=== PATIENT | male | born 1965 | race Two or more races ===

== ENCOUNTER 2023-10-02 15:20 | Inpatient (IN) | payer MEDICAID, OTHER ==
[~2023-10-02] VITALS: Ht 172.7 cm; Wt 68.1 kg
[2023-10-02] MEDS ORDERED: SODIUM CHLORIDE 0.9% 1,000 ML IV ONE ×2 (15:30→19:30)
[2023-10-02] MEDS ORDERED: ALBUTEROL SULF 2.5 MG/0.5ML(0.5%) NEB SOLN NEB ONE (15:30)
[2023-10-02] MEDS ORDERED: IPRATROPIUM BROM 0.5 MG/2.5ML INH SOL NEB ONE (15:30)
[2023-10-02] MEDS ORDERED: methylPREDNISolone SOD SUCC 125 MG/2 ML VL IV ONE (15:30)
[2023-10-02] MEDS ORDERED: NALOXONE HCL 1MG/ML 2ML SYRINGE IV ONE ×2 (15:45→20:45)
[2023-10-02 16:54] LABS: Basophils # (auto) 0 10 ^3/uL (0-0.2); Basophils % (auto) 0.8 % (0.0-2.0); Eosinophils # (auto) 0.2 10 ^3/uL (0-0.8); Eosinophils % (auto) 3.7 % (0.0-7.0); Hematocrit 40.7 % (41.0-53.0); Lymphocytes # (auto) 1.3 10 ^3/uL (0.4-5.4); Lymphocytes % (auto) 22.7 % (10.0-50.0); Mean Corpuscular Hemoglobin 27.3 pg (28.0-32.0); Mean Corpuscular Volume 85.5 fL (80.0-100.0); Monocytes # (auto) 0.8 10 ^3/uL (0-1.3); Monocytes % (auto) 12.8 % (0.0-12.0); Neutrophils # (auto) 3.6 10 ^3/uL (1.6-8.6); Red Blood Cells 4.76 10^6/uL (4.5-5.90); Red Cell Distribution Width 15.1 % (11.8-14.3); White Blood Cell 5.9 10^3/uL (4.4-10.8)
[2023-10-02 17:07] LABS: Alanine Aminotransferase 37 U/L (7-40); Albumin 3.7 g/dL (3.2-4.8); Alkaline Phosphatase 109 U/L (46-116); Anion Gap 11 (5-15); Aspartate Aminotransferase 50 U/L (13-40); Bilirubin, Total 0.3 mg/dL (0.2-1.0); Blood Urea Nitrogen 18 mg/dL (9-23); Calcium 8.5 mg/dL (8.7-10.4); Carbon Dioxide 25 mmol/L (20-30); Chloride 107 mmol/L (98-107); Glucose 109 mg/dL (74-106); Potassium 3.3 mmol/L (3.5-5.1); Sodium 143 mmol/L (136-145); Total Protein 6.1 g/dL (5.7-8.2)
[2023-10-02 17:24] LABS: Acetaminophen < 2.0 UG/ML (10.0-20.0)
[2023-10-02 17:28] LABS: Creatine Kinase IFCC 222 U/L (46-171)
[2023-10-02 17:30] LABS: Salicylate < 3.0 mg/dL (2.8-20.0)
[2023-10-02 17:34] LABS: Lactic Acid w/Reflex 5.3 mmol/L (0.4-2.0)
[2023-10-02 17:49] LABS: Urine Bacteria NONE SEEN /hpf (None Seen); Urine Blood Negative /uL (Negative); Urine Clarity Clear (Clear); Urine Color Colorless (Yellow); Urine Hyaline Cast FEW /lpf (0 - 2); Urine Protein, UAD Negative (Negative); Urine Specific Gravity 1.009 (1.001-1.035); Urine Urobilinogen Normal (Negative); Urine WBC 1 /hpf (0 - 3); Urine pH 6.5 (5.0-8.0)
[2023-10-02 17:55] LABS: Amphetamine Screen, Urine Pos (NEGATIVE); Barbiturate Scree,Urine Neg (NEGATIVE); Benzodiazephine Screen, Urine Neg (NEGATIVE); Cannabinoid Screen, Urine Neg (NEGATIVE); Cocaine Screen, Urine Neg (NEGATIVE); Opiate Scree,Urine Neg (NEGATIVE); Phencyclidine Screen, Urine Neg (NEGATIVE)
[2023-10-02] MEDS ORDERED: PIPERACILLIN-TAZOB 3.375GM 100 ML IV ONE (19:30)
[2023-10-02 19:50] VITALS: PULSE 82; RESP 14; O2SAT 96
[2023-10-02 20:00] VITALS: TEMP 98.7
[2023-10-02 20:05] VITALS: PULSE 74; RESP 16; O2SAT 98
[2023-10-02] MEDS ORDERED: ASPirin 325 MG TAB PO ONE (20:45)
[2023-10-02] MEDS ORDERED: DOCUSATE SOD 100 MG CAP PO PRN (21:15)
[2023-10-02] MEDS ORDERED: IBUPROFEN 600 MG TAB PO PRN (21:15)
[2023-10-02] MEDS ORDERED: HYDROcodone-ACET 5/325MG TAB PO PRN (21:15)
[2023-10-02] MEDS ORDERED: IPRATROPIUM BROM 0.5 MG/2.5ML INH SOL NEB PRN (21:15)
[2023-10-02] MEDS ORDERED: ALBUTEROL MEDNEB 2.5 mg/3ml NEB NEB PRN (21:15)
[2023-10-02] MEDS ORDERED: ONDANSETRON HCL 4 MG/2 ML VIAL IV PRN (21:15)
[2023-10-02] MEDS: SODIUM CHLOR 0.9% PF (SALINE LOCK) 10ML VIAL/SYR IV SCH (21:29)
[2023-10-02] MEDS ORDERED: POTASSIUM CHL 20 Meq TABLET PO ONE (23:00)
[2023-10-02] MEDS ORDERED: NITROGLYCERIN 0.4 MG SL TAB SL PRN (23:30)
[2023-10-02] MEDS ORDERED: MORPHINE SULFATE INJ 2 MG/ml SYRG IV PRN (23:30)
[2023-10-03 00:48] VITALS: O2SAT 100
[2023-10-03 03:04] VITALS: BP 131/92; PULSE 72; RESP 20; O2SAT 100
[2023-10-03] MEDS ORDERED: PIPERACILLIN-TAZOB 3.375GM 100 ML IV SCH (05:00)
[2023-10-03] MEDS: SODIUM CHLOR 0.9% PF (SALINE LOCK) 10ML VIAL/SYR IV SCH (05:30)
[2023-10-03 06:00] VITALS: BP 141/90; PULSE 68; RESP 12
[2023-10-03 07:11] VITALS: O2SAT 96
[2023-10-03 07:51] LABS: Basophils # (auto) 0 10 ^3/uL (0-0.2); Basophils % (auto) 0.1 % (0.0-2.0); Eosinophils # (auto) 0 10 ^3/uL (0-0.8); Hematocrit 49.1 % (41.0-53.0); Hemoglobin 15.3 g/dL (13.5-17.5); Lymphocytes # (auto) 0.8 10 ^3/uL (0.4-5.4); Mean Corpuscular Hemoglobin 27.5 pg (28.0-32.0); Mean Corpuscular Hgb Conc. 31.1 g/dL (32.0-36.0); Mean Corpuscular Volume 88.4 fL (80.0-100.0); Monocytes # (auto) 0.7 10 ^3/uL (0-1.3); Monocytes % (auto) 6.4 % (0.0-12.0); Neutrophils # (auto) 8.9 10 ^3/uL (1.6-8.6); Neutrophils % (auto) 85.5 % (37.0-80.0); Red Blood Cells 5.56 10^6/uL (4.5-5.90); Red Cell Distribution Width 15.6 % (11.8-14.3); White Blood Cell 10.5 10^3/uL (4.4-10.8)
[2023-10-03 09:32] LABS: Platelet Estimate Adequate
[2023-10-03 09:44] LABS: Alanine Aminotransferase 31 U/L (7-40); Alkaline Phosphatase 103 U/L (46-116); Anion Gap 4 (5-15); BUN/Creatinine Ratio 12.5 (10.0-20.0); Blood Urea Nitrogen 10 mg/dL (9-23); Carbon Dioxide 28 mmol/L (20-30); Chloride 105 mmol/L (98-107); Glucose 125 mg/dL (74-106); Potassium 4.2 mmol/L (3.5-5.1); Sodium 137 mmol/L (136-145)
[2023-10-03 09:45] LABS: Aspartate Aminotransferase 34 U/L (13-40); Bilirubin, Total 0.6 mg/dL (0.2-1.0)
[2023-10-03] MEDS ORDERED: ASPirin 81 mg TAB PO SCH (10:00)
[2023-10-03] MEDS ORDERED: SODIUM CHLORIDE 0.9% 1,000 ML IV SCH (11:15)
== END 2023-10-03 12:06 | disposition left against medical advice (07) | DRG 52 ==
LOC: EDBD 15:20 → ER 15:20 → TELE 23:25
PROVIDERS: ADMIT Nurse Practitioner Family; ATTEND Family Medicine
DX: G92.8 Other toxic encephalopathy (principal); J96.90 Respiratory failure, unspecified, unspecified whether with hypoxia or hypercapnia; I21.A1 Myocardial infarction type 2; E87.21 Acute metabolic acidosis; F10.10 Alcohol abuse, uncomplicated; Z53.29 Procedure and treatment not carried out because of patient's decision for other reasons; E86.0 Dehydration; E87.6 Hypokalemia; F19.10 Other psychoactive substance abuse, uncomplicated; M62.82 Rhabdomyolysis; Z87.891 Personal history of nicotine dependence
CPT/HCPCS: 36415; 70450; 71045; 80053; 80307; 80320; 80329; 81001; 82550; 83605; 83735; 83880; 84484; 85025; 87040; 87077; 87186; 93005; 94640; G0378; J2543

== ENCOUNTER 2023-10-07 11:45 | Inpatient (IN) | payer MEDICAID ==
[~2023-10-07] VITALS: Ht 175.3 cm; Wt 55.0 kg
[2023-10-07 12:21] LABS: Basophils # (auto) 0.1 10 ^3/uL (0-0.2); Basophils % (auto) 0.7 % (0.0-2.0); Eosinophils # (auto) 0.1 10 ^3/uL (0-0.8); Eosinophils % (auto) 0.8 % (0.0-7.0); Hematocrit 41.2 % (41.0-53.0); Lymphocytes # (auto) 0.8 10 ^3/uL (0.4-5.4); Lymphocytes % (auto) 6.9 % (10.0-50.0); Mean Corpuscular Hemoglobin 27.2 pg (28.0-32.0); Mean Corpuscular Hgb Conc. 31.5 g/dL (32.0-36.0); Mean Corpuscular Volume 86.5 fL (80.0-100.0); Monocytes # (auto) 0.7 10 ^3/uL (0-1.3); Monocytes % (auto) 5.9 % (0.0-12.0); Neutrophils # (auto) 10.1 10 ^3/uL (1.6-8.6); Neutrophils % (auto) 85.7 % (37.0-80.0); Red Blood Cells 4.76 10^6/uL (4.5-5.90); Red Cell Distribution Width 14.7 % (11.8-14.3); White Blood Cell 11.8 10^3/uL (4.4-10.8)
[2023-10-07 12:38] LABS: Partial Thromboplastin Time 20.6 SEC (24.5-34.5); Prothrombin Time 10.5 sec (9.3-11.8)
[2023-10-07 12:54] LABS: Alanine Aminotransferase 30 U/L (7-40); Alkaline Phosphatase 110 U/L (46-116); Anion Gap 6 (5-15); Aspartate Aminotransferase 30 U/L (13-40); BUN/Creatinine Ratio 14.3 (10.0-20.0); Bilirubin, Total 0.5 mg/dL (0.2-1.0); Blood Urea Nitrogen 16 mg/dL (9-23); Carbon Dioxide 31 mmol/L (20-30); Chloride 102 mmol/L (98-107); Glucose 153 mg/dL (74-106); Potassium 4.1 mmol/L (3.5-5.1); Sodium 139 mmol/L (136-145); Total Protein 6.6 g/dL (5.7-8.2)
[2023-10-07 15:10] LABS: Magnesium 2.1 mg/dL (1.6-2.6)
[2023-10-07] MEDS ORDERED: ENOXAPARIN SOD 80 MG/0.8ML SYRINGE SC ONE (15:15)
[2023-10-07] MEDS ORDERED: IOHEXOL 350 MG/ML 100ML IJ ONE (16:06)
[2023-10-07 16:12] LABS: Urine Bacteria FEW /hpf (None Seen); Urine Blood Negative /uL (Negative); Urine Clarity HAZY (Clear); Urine Color Yellow (Yellow); Urine Hyaline Cast MOD /lpf (0 - 2); Urine Mucus FEW (None Seen); Urine Protein, UAD 1+ (Negative); Urine Specific Gravity 1.018 (1.001-1.035); Urine Sperm PRESENT /hpf (None Seen); Urine Urobilinogen Normal (Negative); Urine WBC 9 /hpf (0 - 3); Urine pH 6.5 (5.0-8.0)
[2023-10-07] MEDS ORDERED: ASPirin 81 mg TAB PO ONE (16:30)
[2023-10-07] MEDS ORDERED: NITROGLYCERIN 0.4 MG SL TAB SL ONE (16:30)
[2023-10-07 18:05] LABS: Triglycerides 50 mg/dL (< 150)
[2023-10-07 18:06] LABS: LDL Cholesterol 74 mg/dL (< 100)
[2023-10-07 18:07] LABS: Cholesterol 147 mg/dL (< 200); HDL Cholesterol 63 mg/dL (40-59)
[2023-10-07] MEDS: LISINOPRIL 10 MG TAB PO SCH (23:27)
[2023-10-08 06:51] LABS: Basophils # (auto) 0.1 10 ^3/uL (0-0.2); Basophils % (auto) 0.6 % (0.0-2.0); Eosinophils # (auto) 0.2 10 ^3/uL (0-0.8); Eosinophils % (auto) 2.2 % (0.0-7.0); Hematocrit 36.8 % (41.0-53.0); Hemoglobin 11.8 g/dL (13.5-17.5); Lymphocytes # (auto) 1.4 10 ^3/uL (0.4-5.4); Lymphocytes % (auto) 13.8 % (10.0-50.0); Mean Corpuscular Volume 84.3 fL (80.0-100.0); Monocytes # (auto) 1.1 10 ^3/uL (0-1.3); Monocytes % (auto) 10.8 % (0.0-12.0); Neutrophils # (auto) 7.1 10 ^3/uL (1.6-8.6); Neutrophils % (auto) 72.6 % (37.0-80.0); Red Blood Cells 4.36 10^6/uL (4.5-5.90); Red Cell Distribution Width 14.6 % (11.8-14.3); White Blood Cell 9.8 10^3/uL (4.4-10.8)
[2023-10-08 06:53] LABS: Alanine Aminotransferase 22 U/L (7-40); Albumin 3.8 g/dL (3.2-4.8); Alkaline Phosphatase 91 U/L (46-116); Anion Gap 5 (5-15); Aspartate Aminotransferase 21 U/L (13-40); BUN/Creatinine Ratio 15.2 (10.0-20.0); Bilirubin, Total 0.6 mg/dL (0.2-1.0); Blood Urea Nitrogen 17 mg/dL (9-23); Calcium 8.7 mg/dL (8.7-10.4); Carbon Dioxide 30 mmol/L (20-30); Chloride 102 mmol/L (98-107); Glucose 96 mg/dL (74-106); Potassium 3.9 mmol/L (3.5-5.1); Sodium 137 mmol/L (136-145); Total Protein 6.4 g/dL (5.7-8.2)
[2023-10-08 09:14] VITALS: PULSE 85; RESP 19; O2SAT 100
[2023-10-08 09:27] LABS: Amphetamine Screen, Urine Pos (NEGATIVE); Barbiturate Scree,Urine Neg (NEGATIVE); Benzodiazephine Screen, Urine Neg (NEGATIVE); Cannabinoid Screen, Urine Pos (NEGATIVE); Cocaine Screen, Urine Neg (NEGATIVE); Opiate Scree,Urine Neg (NEGATIVE); Phencyclidine Screen, Urine Neg (NEGATIVE)
[2023-10-08] MEDS: ONDANSETRON HCL 4 MG/2 ML VIAL IV PRN (09:33)
[2023-10-08] MEDS: MORPHINE SULFATE INJ 2 MG/ml SYRG IV PRN ×5 (09:34→20:49)
[2023-10-08] MEDS ORDERED: SODIUM CHLORIDE 0.9% 1,000 ML IV ONE (09:45)
[2023-10-08] MEDS ORDERED: ENOXAPARIN SOD 40 MG/0.4 ML SYRINGE SC SCH (10:00)
[2023-10-08] MEDS ORDERED: OMNIPAQUE 12mg/ml 500ml ORAL SOLUTION PO ONE (10:08)
[2023-10-08] MEDS: LISINOPRIL 10 MG TAB PO SCH (10:18)
[2023-10-08] MEDS ORDERED: IOHEXOL 300 MG/ML 100ML BOTTLE IJ ONE (11:27)
[2023-10-08 15:54] VITALS: BP 173/115; PULSE 88; RESP 22; TEMP 98.1; O2SAT 98
[2023-10-08 16:48] VITALS: BP 146/82; PULSE 95; RESP 21; TEMP 98.2; O2SAT 99
[2023-10-08] MEDS ORDERED: GABA-1250 PO (17:17)
[2023-10-08] MEDS ORDERED: hydrALAZINE HCL 20 MG/ML VL IV PRN (17:30)
[2023-10-08 20:00] VITALS: PULSE 104
[2023-10-08 22:00] VITALS: BP 110/66; PULSE 97; RESP 18; TEMP 97.7; O2SAT 85
[2023-10-09] VITALS (7 sets, daily range): BP systolic 101–119; BP diastolic 56–79; PULSE 91–99; RESP 20–22; TEMP 98.2–99.5; O2SAT 97–100
[2023-10-09 07:00] LABS: Basophils # (auto) 0 10 ^3/uL (0-0.2); Basophils % (auto) 0.5 % (0.0-2.0); Eosinophils # (auto) 0 10 ^3/uL (0-0.8); Eosinophils % (auto) 0.5 % (0.0-7.0); Hematocrit 32.1 % (41.0-53.0); Hemoglobin 10.4 g/dL (13.5-17.5); Lymphocytes # (auto) 0.9 10 ^3/uL (0.4-5.4); Lymphocytes % (auto) 10.1 % (10.0-50.0); Mean Corpuscular Hemoglobin 27.3 pg (28.0-32.0); Mean Corpuscular Hgb Conc. 32.3 g/dL (32.0-36.0); Mean Corpuscular Volume 84.4 fL (80.0-100.0); Monocytes # (auto) 1.1 10 ^3/uL (0-1.3); Monocytes % (auto) 11.8 % (0.0-12.0); Neutrophils # (auto) 7.1 10 ^3/uL (1.6-8.6); Neutrophils % (auto) 77.1 % (37.0-80.0); Red Cell Distribution Width 14.6 % (11.8-14.3); White Blood Cell 9.2 10^3/uL (4.4-10.8)
[2023-10-09 07:07] LABS: Anion Gap 6 (5-15); Carbon Dioxide 28 mmol/L (20-30); Chloride 101 mmol/L (98-107); Potassium 4.2 mmol/L (3.5-5.1); Sodium 135 mmol/L (136-145)
[2023-10-09 07:09] LABS: Calcium 8.9 mg/dL (8.7-10.4)
[2023-10-09 07:14] LABS: BUN/Creatinine Ratio 16.9 (10.0-20.0); Blood Urea Nitrogen 13 mg/dL (9-23); Glucose 90 mg/dL (74-106)
[2023-10-09] MEDS: MORPHINE SULFATE INJ 2 MG/ml SYRG IV PRN ×3 (08:07→16:41)
[2023-10-09] MEDS: LISINOPRIL 10 MG TAB PO SCH (08:07)
[2023-10-09] MEDS ORDERED: LORazepam 2MG/ML-1ML VIAL IV PRN (12:45)
[2023-10-10] VITALS (7 sets, daily range): BP systolic 108–118; BP diastolic 64–72; PULSE 82–103; RESP 16–22; TEMP 98–98.4; O2SAT 93–97
[2023-10-10] MEDS: MORPHINE SULFATE INJ 2 MG/ml SYRG IV PRN ×4 (02:45→17:43)
[2023-10-10 05:36] LABS: Basophils # (auto) 0.1 10 ^3/uL (0-0.2); Eosinophils # (auto) 0.2 10 ^3/uL (0-0.8); Eosinophils % (auto) 2.1 % (0.0-7.0); Hematocrit 28.6 % (41.0-53.0); Hemoglobin 9.5 g/dL (13.5-17.5); Lymphocytes # (auto) 0.9 10 ^3/uL (0.4-5.4); Lymphocytes % (auto) 11.5 % (10.0-50.0); Mean Corpuscular Hemoglobin 27.9 pg (28.0-32.0); Mean Corpuscular Hgb Conc. 33.2 g/dL (32.0-36.0); Mean Corpuscular Volume 83.9 fL (80.0-100.0); Monocytes # (auto) 0.9 10 ^3/uL (0-1.3); Monocytes % (auto) 11.6 % (0.0-12.0); Neutrophils # (auto) 5.7 10 ^3/uL (1.6-8.6); Neutrophils % (auto) 73.8 % (37.0-80.0); Nucleated Red Blood Cells % 0.1 %; Red Blood Cells 3.41 10^6/uL (4.5-5.90); Red Cell Distribution Width 14.3 % (11.8-14.3); White Blood Cell 7.7 10^3/uL (4.4-10.8)
[2023-10-10 05:46] LABS: Anion Gap 8 (5-15); Carbon Dioxide 27 mmol/L (20-30); Chloride 102 mmol/L (98-107); Potassium 4.3 mmol/L (3.5-5.1); Sodium 137 mmol/L (136-145)
[2023-10-10 05:47] LABS: Calcium 8.8 mg/dL (8.7-10.4)
[2023-10-10 05:52] LABS: Blood Urea Nitrogen 20 mg/dL (9-23); Glucose 84 mg/dL (74-106)
[2023-10-10] MEDS: LISINOPRIL 10 MG TAB PO SCH (08:35)
[2023-10-10] MEDS: D5W/SOD CHLO 0.9% 1,000 ML IV SCH ×2 (10:10→21:25)
[2023-10-10] MEDS ORDERED: GABAPENTIN 300 MG CAP PO ONE (14:45)
[2023-10-10] MEDS: GABAPENTIN 300 MG CAP PO SCH (21:24)
[2023-10-11] VITALS (7 sets, daily range): BP systolic 105–113; BP diastolic 66–74; PULSE 77–82; RESP 16–20; TEMP 97.5–98.2; O2SAT 93–99
[2023-10-11] MEDS: MORPHINE SULFATE INJ 2 MG/ml SYRG IV PRN ×5 (04:42→22:34)
[2023-10-11 04:58] LABS: Basophils # (auto) 0.1 10 ^3/uL (0-0.2); Basophils % (auto) 0.8 % (0.0-2.0); Eosinophils # (auto) 0.3 10 ^3/uL (0-0.8); Eosinophils % (auto) 3.8 % (0.0-7.0); Hematocrit 30.7 % (41.0-53.0); Hemoglobin 9.9 g/dL (13.5-17.5); Lymphocytes # (auto) 0.7 10 ^3/uL (0.4-5.4); Mean Corpuscular Hemoglobin 27.2 pg (28.0-32.0); Mean Corpuscular Hgb Conc. 32.3 g/dL (32.0-36.0); Mean Corpuscular Volume 84.3 fL (80.0-100.0); Monocytes # (auto) 0.9 10 ^3/uL (0-1.3); Monocytes % (auto) 12.9 % (0.0-12.0); Neutrophils # (auto) 5.3 10 ^3/uL (1.6-8.6); Neutrophils % (auto) 72.5 % (37.0-80.0); Nucleated Red Blood Cells % 0.1 %; Red Blood Cells 3.64 10^6/uL (4.5-5.90); Red Cell Distribution Width 14.5 % (11.8-14.3); White Blood Cell 7.3 10^3/uL (4.4-10.8)
[2023-10-11 05:10] LABS: Anion Gap 4 (5-15); Carbon Dioxide 28 mmol/L (20-30); Chloride 103 mmol/L (98-107); Potassium 4.4 mmol/L (3.5-5.1); Sodium 135 mmol/L (136-145)
[2023-10-11 05:11] LABS: Calcium 8.4 mg/dL (8.7-10.4)
[2023-10-11 05:16] LABS: Blood Urea Nitrogen 14 mg/dL (9-23); Glucose 98 mg/dL (74-106)
[2023-10-11] MEDS ORDERED: OMNIPAQUE 12mg/ml 500ml ORAL SOLUTION PO ONE (08:03)
[2023-10-11] MEDS: GABAPENTIN 300 MG CAP PO SCH ×2 (09:23→22:29)
[2023-10-11] MEDS: LISINOPRIL 10 MG TAB PO SCH (09:24)
[2023-10-11] MEDS ORDERED: IOHEXOL 300 MG/ML 100ML BOTTLE IJ ONE (10:24)
[2023-10-11] MEDS: D5W/SOD CHLO 0.9% 1,000 ML IV SCH ×2 (11:55→22:30)
[2023-10-12 05:00] VITALS: BP 109/64; PULSE 83; RESP 16; TEMP 98.3; O2SAT 96
[2023-10-12 08:00] VITALS: BP 109/63; PULSE 60; PULSE 71; RESP 18; TEMP 98.7; O2SAT 100
[2023-10-12] MEDS: GABAPENTIN 300 MG CAP PO SCH ×2 (08:49→21:08)
[2023-10-12] MEDS: MORPHINE SULFATE INJ 2 MG/ml SYRG IV PRN ×4 (08:50→21:13)
[2023-10-12] MEDS: LISINOPRIL 10 MG TAB PO SCH (08:50)
[2023-10-12] MEDS: D5W/SOD CHLO 0.9% 1,000 ML IV SCH (12:11)
[2023-10-12 12:46] VITALS: BP 120/72; PULSE 77; RESP 18; TEMP 98.4; O2SAT 95
[2023-10-12 15:09] LABS: Basophils # (auto) 0.1 10 ^3/uL (0-0.2); Basophils % (auto) 0.9 % (0.0-2.0); Eosinophils # (auto) 0.2 10 ^3/uL (0-0.8); Eosinophils % (auto) 2.6 % (0.0-7.0); Hemoglobin 10.1 g/dL (13.5-17.5); Lymphocytes # (auto) 0.8 10 ^3/uL (0.4-5.4); Lymphocytes % (auto) 10.7 % (10.0-50.0); Mean Corpuscular Hemoglobin 27.1 pg (28.0-32.0); Mean Corpuscular Hgb Conc. 32.5 g/dL (32.0-36.0); Mean Corpuscular Volume 83.4 fL (80.0-100.0); Monocytes # (auto) 0.8 10 ^3/uL (0-1.3); Monocytes % (auto) 11.1 % (0.0-12.0); Neutrophils # (auto) 5.7 10 ^3/uL (1.6-8.6); Neutrophils % (auto) 74.7 % (37.0-80.0); Red Blood Cells 3.72 10^6/uL (4.5-5.90); Red Cell Distribution Width 14.3 % (11.8-14.3); White Blood Cell 7.6 10^3/uL (4.4-10.8)
[2023-10-12 15:23] LABS: INR 1.05 (0.9-1.15); Partial Thromboplastin Time 21.7 SEC (24.5-34.5)
[2023-10-12 15:27] LABS: % Iron Saturation 7.3 % (20-55)
[2023-10-12 15:28] LABS: Alanine Aminotransferase 13 U/L (7-40); Alkaline Phosphatase 81 U/L (46-116); Anion Gap 4 (5-15); Aspartate Aminotransferase 22 U/L (13-40); BUN/Creatinine Ratio 8.6 (10.0-20.0); Blood Urea Nitrogen 6 mg/dL (9-23); Calcium 8.6 mg/dL (8.7-10.4); Carbon Dioxide 28 mmol/L (20-30); Chloride 102 mmol/L (98-107); Glucose 103 mg/dL (74-106); Sodium 134 mmol/L (136-145)
[2023-10-12 15:29] LABS: Bilirubin, Total 0.8 mg/dL (0.2-1.0); Total Protein 6.9 g/dL (5.7-8.2)
[2023-10-12] MEDS ORDERED: DOCUSATE SOD 100 MG CAP PO PRN (16:45)
[2023-10-12 17:00] VITALS: BP 121/73; PULSE 77; RESP 18; TEMP 98.6; O2SAT 91
[2023-10-12] MEDS: FERROUS SULFATE 325mg EC TAB PO SCH (17:30)
[2023-10-12] MEDS ORDERED: OMNIPAQUE 12mg/ml 500ml ORAL SOLUTION PO ONE (18:00)
[2023-10-12 19:30] VITALS: PULSE 85; PULSE 87; RESP 19; O2SAT 98
[2023-10-12 22:00] VITALS: BP 102/60; PULSE 97; RESP 16; TEMP 98.5; O2SAT 98
[2023-10-13] VITALS (8 sets, daily range): BP systolic 31–124; BP diastolic 61–95; PULSE 71–92; RESP 14–19; TEMP 97.5–98.6; O2SAT 94–99
[2023-10-13] MEDS: D5W/SOD CHLO 0.9% 1,000 ML IV SCH ×2 (04:01→17:15)
[2023-10-13] MEDS: MORPHINE SULFATE INJ 2 MG/ml SYRG IV PRN ×3 (06:59→20:15)
[2023-10-13] MEDS ORDERED: LIDOCAINE 2%HCL (LOCAL ANESTH.) INJ 10ml MDV ONE (08:51)
[2023-10-13] MEDS: FERROUS SULFATE 325mg EC TAB PO SCH ×2 (08:57→17:15)
[2023-10-13] MEDS: GABAPENTIN 300 MG CAP PO SCH ×2 (08:57→21:30)
[2023-10-13] MEDS: LISINOPRIL 10 MG TAB PO SCH (08:58)
[2023-10-13] MEDS ORDERED: levETIRAcetam 500 MG TAB PO ONE (14:00)
[2023-10-13] MEDS: levETIRAcetam 500 MG TAB PO SCH (21:30)
[2023-10-13] MEDS ORDERED: LORazepam 2MG/ML-1ML VIAL IV PRN (23:15)
[2023-10-13] MEDS ORDERED: GABAPENTIN 300 MG CAP PO SCH (23:15)
[2023-10-14] MEDS: MORPHINE SULFATE INJ 2 MG/ml SYRG IV PRN ×5 (00:42→19:34)
[2023-10-14 05:00] VITALS: BP 110/72; PULSE 71; RESP 19; TEMP 98; O2SAT 96
[2023-10-14] MEDS ORDERED: GABAPENTIN 300 MG CAP PO SCH (06:00)
[2023-10-14] MEDS: D5W/SOD CHLO 0.9% 1,000 ML IV SCH (06:31)
[2023-10-14 06:38] LABS: Anion Gap 3 (5-15); Carbon Dioxide 27 mmol/L (20-30); Chloride 105 mmol/L (98-107); Sodium 135 mmol/L (136-145)
[2023-10-14 06:39] LABS: Calcium 8.3 mg/dL (8.7-10.4)
[2023-10-14 06:44] LABS: BUN/Creatinine Ratio 9.7 (10.0-20.0); Blood Urea Nitrogen 7 mg/dL (9-23); Glucose 124 mg/dL (74-106)
[2023-10-14 07:12] LABS: Basophils # (auto) 0.1 10 ^3/uL (0-0.2); Basophils % (auto) 0.8 % (0.0-2.0); Eosinophils # (auto) 0.3 10 ^3/uL (0-0.8); Eosinophils % (auto) 4.8 % (0.0-7.0); Hematocrit 28.2 % (41.0-53.0); Hemoglobin 9.3 g/dL (13.5-17.5); Lymphocytes # (auto) 0.7 10 ^3/uL (0.4-5.4); Lymphocytes % (auto) 11.2 % (10.0-50.0); Mean Corpuscular Hemoglobin 27.6 pg (28.0-32.0); Mean Corpuscular Hgb Conc. 32.8 g/dL (32.0-36.0); Mean Corpuscular Volume 84.1 fL (80.0-100.0); Monocytes # (auto) 0.8 10 ^3/uL (0-1.3); Monocytes % (auto) 11.4 % (0.0-12.0); Neutrophils # (auto) 4.8 10 ^3/uL (1.6-8.6); Neutrophils % (auto) 71.8 % (37.0-80.0); Red Blood Cells 3.36 10^6/uL (4.5-5.90); Red Cell Distribution Width 14.5 % (11.8-14.3); White Blood Cell 6.7 10^3/uL (4.4-10.8)
[2023-10-14 08:00] VITALS: BP 116/60; PULSE 74; RESP 0; RESP 20; TEMP 98; O2SAT 95
[2023-10-14 09:00] VITALS: BP 116/60; PULSE 74; RESP 20; TEMP 98; O2SAT 95
[2023-10-14] MEDS: FERROUS SULFATE 325mg EC TAB PO SCH ×2 (09:40→17:43)
[2023-10-14] MEDS: levETIRAcetam 500 MG TAB PO SCH ×2 (09:40→21:33)
[2023-10-14] MEDS: LISINOPRIL 10 MG TAB PO SCH (09:42)
[2023-10-14 13:00] VITALS: BP 103/68; PULSE 68; RESP 19; TEMP 98.1; O2SAT 97
[2023-10-14 16:38] VITALS: BP 99/47; PULSE 73; RESP 21; TEMP 98.2; O2SAT 99
[2023-10-14] MEDS: ONDANSETRON HCL 4 MG/2 ML VIAL IV PRN (19:33)
[2023-10-14 22:00] VITALS: BP 92/60; PULSE 81; RESP 18; TEMP 98.6; O2SAT 100
[2023-10-15] VITALS (7 sets, daily range): BP systolic 102–114; BP diastolic 55–71; PULSE 70–81; RESP 16–20; TEMP 98–98.9; O2SAT 96–99
[2023-10-15] MEDS: MORPHINE SULFATE INJ 2 MG/ml SYRG IV PRN ×6 (00:41→22:21)
[2023-10-15] MEDS: D5W/SOD CHLO 0.9% 1,000 ML IV SCH ×3 (00:49→13:56)
[2023-10-15 06:09] LABS: Anion Gap 4 (5-15); Calcium 9.1 mg/dL (8.5-10.1); Carbon Dioxide 30 mmol/L (20-30); Chloride 103 mmol/L (98-107); Potassium 4.2 mmol/L (3.5-5.1); Sodium 137 mmol/L (136-145)
[2023-10-15 06:15] LABS: Blood Urea Nitrogen 12 mg/dL (9-23); Glucose 106 mg/dL (74-106)
[2023-10-15 06:21] LABS: Basophils # (auto) 0.1 10 ^3/uL (0-0.2); Basophils % (auto) 0.7 % (0.0-2.0); Eosinophils # (auto) 0.4 10 ^3/uL (0-0.8); Eosinophils % (auto) 4.7 % (0.0-7.0); Hematocrit 27.7 % (41.0-53.0); Hemoglobin 9.3 g/dL (13.5-17.5); Lymphocytes # (auto) 0.9 10 ^3/uL (0.4-5.4); Mean Corpuscular Hemoglobin 28.4 pg (28.0-32.0); Mean Corpuscular Hgb Conc. 33.6 g/dL (32.0-36.0); Mean Corpuscular Volume 84.3 fL (80.0-100.0); Monocytes # (auto) 0.8 10 ^3/uL (0-1.3); Monocytes % (auto) 9.2 % (0.0-12.0); Neutrophils # (auto) 6.2 10 ^3/uL (1.6-8.6); Neutrophils % (auto) 74.4 % (37.0-80.0); Red Blood Cells 3.28 10^6/uL (4.5-5.90); Red Cell Distribution Width 14.5 % (11.8-14.3); White Blood Cell 8.4 10^3/uL (4.4-10.8)
[2023-10-15] MEDS: FERROUS SULFATE 325mg EC TAB PO SCH ×2 (09:37→16:11)
[2023-10-15] MEDS: LISINOPRIL 10 MG TAB PO SCH (09:37)
[2023-10-15] MEDS: levETIRAcetam 500 MG TAB PO SCH ×2 (09:37→22:19)
[2023-10-15 20:40] LABS: INR 1.04 (0.9-1.15); Partial Thromboplastin Time 29.1 SEC (24.5-34.5); Prothrombin Time 10.9 sec (9.3-11.8)
[2023-10-16 05:00] VITALS: BP 104/66; PULSE 68; RESP 20; TEMP 97.6; O2SAT 95
[2023-10-16] MEDS: MORPHINE SULFATE INJ 2 MG/ml SYRG IV PRN (05:18)
[2023-10-16] MEDS: FERROUS SULFATE 325mg EC TAB PO SCH ×2 (08:00→16:05)
[2023-10-16 08:30] LABS: Basophils # (auto) 0.1 10 ^3/uL (0-0.2); Basophils % (auto) 0.9 % (0.0-2.0); Eosinophils # (auto) 0.4 10 ^3/uL (0-0.8); Eosinophils % (auto) 4.7 % (0.0-7.0); Hematocrit 31.2 % (41.0-53.0); Hemoglobin 9.8 g/dL (13.5-17.5); Lymphocytes # (auto) 0.9 10 ^3/uL (0.4-5.4); Lymphocytes % (auto) 10.4 % (10.0-50.0); Mean Corpuscular Hgb Conc. 31.3 g/dL (32.0-36.0); Monocytes # (auto) 0.6 10 ^3/uL (0-1.3); Monocytes % (auto) 6.7 % (0.0-12.0); Neutrophils # (auto) 6.7 10 ^3/uL (1.6-8.6); Neutrophils % (auto) 77.3 % (37.0-80.0); Red Blood Cells 3.63 10^6/uL (4.5-5.90); White Blood Cell 8.7 10^3/uL (4.4-10.8)
[2023-10-16 08:51] LABS: Anion Gap 3 (5-15); Carbon Dioxide 29 mmol/L (20-30); Chloride 105 mmol/L (98-107); Potassium 4.3 mmol/L (3.5-5.1); Sodium 137 mmol/L (136-145)
[2023-10-16] MEDS ORDERED: ceFAZolin 2 GM/D5W100ml 100 ML IV ONE (08:53)
[2023-10-16 08:56] LABS: BUN/Creatinine Ratio 13.6 (10.0-20.0); Blood Urea Nitrogen 9 mg/dL (9-23); Glucose 95 mg/dL (74-106)
[2023-10-16] MEDS: levETIRAcetam 500 MG TAB PO SCH ×2 (08:59→20:37)
[2023-10-16] MEDS: LISINOPRIL 10 MG TAB PO SCH (08:59)
[2023-10-16] MEDS ORDERED: BUPIVACAINE HCL 50 ML ONE (09:12)
[2023-10-16] MEDS ORDERED: HYDROmorphone HCL 2 MG/ML VL/or syr ONE (09:39)
[2023-10-16] MEDS ORDERED: MIDAZOLAM HCL 2MG/2ML 2ml VIAL (1mg/ml) ONE (09:40)
[2023-10-16] MEDS ORDERED: fentaNYL CITRATE 100 MCG/2 ML VL ONE ×2 (09:40→10:14)
[2023-10-16] MEDS ORDERED: PROPOFOL 10 MG/ML 20 ML IV ONE (10:13)
[2023-10-16] MEDS ORDERED: DexAMETHasone SOD PHOS 10MG/1ML VIAL INJ ONE (10:13)
[2023-10-16] MEDS ORDERED: ONDANSETRON HCL 4 MG/2 ML VIAL ONE (10:16)
[2023-10-16] MEDS ORDERED: ePHEDrine SULFATE 50 MG/ML AMP IV PRN (10:30)
[2023-10-16] MEDS ORDERED: HYDROmorphone HCL 2 MG/ML VL/or syr IV PRN (10:30)
[2023-10-16] MEDS ORDERED: fentaNYL CITRATE 100 MCG/2 ML VL IV PRN (10:30)
[2023-10-16] MEDS ORDERED: MORPHINE SULFATE 4 MG/ML SYR/VIAL IV PRN (10:30)
[2023-10-16] MEDS ORDERED: ONDANSETRON HCL 4 MG/2 ML VIAL IV PRN (10:30)
[2023-10-16] MEDS ORDERED: KETOROLAC TROMETH 30 MG/ML 1ML VIAL IV ONE (10:30)
[2023-10-16] MEDS ORDERED: LABETALOL HCL 5 MG/ML 4ML SYRINGE IV PRN (10:30)
[2023-10-16] MEDS ORDERED: SUGAMMADEX 200mg/2ml Vial (100MG/ML) IV ONE (11:27)
[2023-10-16] MEDS: D5W/SOD CHLO 0.9% 1,000 ML IV SCH ×2 (11:55→16:06)
[2023-10-16 11:57] VITALS: O2SAT 92
[2023-10-16 13:00] VITALS: BP 116/72; PULSE 91; RESP 20; TEMP 98; O2SAT 98
[2023-10-16 16:37] VITALS: BP 134/89; PULSE 91; RESP 20; TEMP 98.6; O2SAT 95
[2023-10-16 20:00] VITALS: BP 110/66; PULSE 71; PULSE 90; RESP 16; RESP 18; TEMP 37; O2SAT 96
[2023-10-16] MEDS: HYDROmorphone HCL 2 MG/ML VL/or syr IV PRN (20:37)
[2023-10-16 22:00] VITALS: BP 117/76; PULSE 87; RESP 20; TEMP 97.9; O2SAT 100
[2023-10-17] VITALS (7 sets, daily range): BP systolic 108–132; BP diastolic 77–90; PULSE 77–97; RESP 16–20; TEMP 97.4–98.3; O2SAT 92–97
[2023-10-17] MEDS: HYDROmorphone HCL 2 MG/ML VL/or syr IV PRN ×5 (03:36→21:46)
[2023-10-17] MEDS: levETIRAcetam 500 MG TAB PO SCH ×2 (09:39→21:40)
[2023-10-17] MEDS: FERROUS SULFATE 325mg EC TAB PO SCH (09:39)
[2023-10-17] MEDS: LISINOPRIL 10 MG TAB PO SCH (09:40)
[2023-10-17 10:46] LABS: Basophils # (auto) 0.1 10 ^3/uL (0-0.2); Basophils % (auto) 0.7 % (0.0-2.0); Eosinophils # (auto) 0.1 10 ^3/uL (0-0.8); Eosinophils % (auto) 1.1 % (0.0-7.0); Hematocrit 29.4 % (41.0-53.0); Hemoglobin 9.2 g/dL (13.5-17.5); Lymphocytes # (auto) 0.8 10 ^3/uL (0.4-5.4); Lymphocytes % (auto) 7.3 % (10.0-50.0); Mean Corpuscular Hemoglobin 27.2 pg (28.0-32.0); Mean Corpuscular Hgb Conc. 31.3 g/dL (32.0-36.0); Mean Corpuscular Volume 86.8 fL (80.0-100.0); Monocytes # (auto) 0.9 10 ^3/uL (0-1.3); Monocytes % (auto) 7.8 % (0.0-12.0); Neutrophils # (auto) 9.4 10 ^3/uL (1.6-8.6); Neutrophils % (auto) 83.1 % (37.0-80.0); Red Blood Cells 3.39 10^6/uL (4.5-5.90); Red Cell Distribution Width 15.1 % (11.8-14.3); White Blood Cell 11.4 10^3/uL (4.4-10.8)
[2023-10-17 10:56] LABS: Anion Gap 5 (5-15); Carbon Dioxide 27 mmol/L (20-30); Chloride 102 mmol/L (98-107); Sodium 134 mmol/L (136-145)
[2023-10-17 10:57] LABS: Calcium 8.7 mg/dL (8.5-10.1)
[2023-10-17 11:01] LABS: Glucose 147 mg/dL (74-106)
[2023-10-17 11:02] LABS: BUN/Creatinine Ratio 18.5 (10.0-20.0); Blood Urea Nitrogen 15 mg/dL (9-23)
[2023-10-17] MEDS: D5W/SOD CHLO 0.9% 1,000 ML IV SCH (13:36)
[2023-10-18] MEDS: HYDROmorphone HCL 2 MG/ML VL/or syr IV PRN ×4 (03:41→19:32)
[2023-10-18] MEDS: D5W/SOD CHLO 0.9% 1,000 ML IV SCH ×2 (03:55→17:15)
[2023-10-18 05:00] VITALS: BP 99/65; PULSE 84; RESP 14; TEMP 97.9; O2SAT 98
[2023-10-18] MEDS: levETIRAcetam 500 MG TAB PO SCH ×2 (08:26→21:27)
[2023-10-18] MEDS: LISINOPRIL 10 MG TAB PO SCH (08:27)
[2023-10-18 08:55] VITALS: BP 114/72; PULSE 79; RESP 20; TEMP 98.5; O2SAT 92
[2023-10-18 12:04] VITALS: BP 107/65; PULSE 79; RESP 18; TEMP 98.2; O2SAT 97
[2023-10-18 17:00] VITALS: BP 115/71; PULSE 88; RESP 20; TEMP 98.6; O2SAT 95
[2023-10-18 19:54] VITALS: BP 114/82; PULSE 94; RESP 20; TEMP 99.1; O2SAT 92
[2023-10-18] MEDS ORDERED: HYDROcodone-ACET 5/325MG TAB PO ONE (21:00)
[2023-10-18 22:00] VITALS: BP 114/82; PULSE 94; RESP 20; TEMP 99.1; O2SAT 92
[2023-10-19] MEDS: HYDROmorphone HCL 2 MG/ML VL/or syr IV PRN ×4 (03:29→23:42)
[2023-10-19 05:00] VITALS: BP 103/65; PULSE 80; RESP 20; TEMP 98.6; O2SAT 94
[2023-10-19] MEDS: D5W/SOD CHLO 0.9% 1,000 ML IV SCH (06:43)
[2023-10-19 07:03] LABS: Basophils # (auto) 0.1 10 ^3/uL (0-0.2); Basophils % (auto) 0.9 % (0.0-2.0); Eosinophils # (auto) 0.4 10 ^3/uL (0-0.8); Eosinophils % (auto) 6.1 % (0.0-7.0); Hematocrit 28.4 % (41.0-53.0); Hemoglobin 9.2 g/dL (13.5-17.5); Lymphocytes # (auto) 0.7 10 ^3/uL (0.4-5.4); Lymphocytes % (auto) 10.4 % (10.0-50.0); Mean Corpuscular Hemoglobin 27.7 pg (28.0-32.0); Mean Corpuscular Hgb Conc. 32.5 g/dL (32.0-36.0); Mean Corpuscular Volume 85.2 fL (80.0-100.0); Monocytes # (auto) 0.8 10 ^3/uL (0-1.3); Monocytes % (auto) 10.8 % (0.0-12.0); Neutrophils % (auto) 71.8 % (37.0-80.0); Nucleated Red Blood Cells % 0.1 %; Red Blood Cells 3.33 10^6/uL (4.5-5.90); Red Cell Distribution Width 15.2 % (11.8-14.3)
[2023-10-19 07:59] LABS: Alanine Aminotransferase 18 U/L (7-40); Alkaline Phosphatase 76 U/L (46-116); Anion Gap 5 (5-15); Calcium 8.7 mg/dL (8.5-10.1); Carbon Dioxide 28 mmol/L (20-30); Chloride 102 mmol/L (98-107); Potassium 4.2 mmol/L (3.5-5.1); Sodium 135 mmol/L (136-145)
[2023-10-19 08:00] LABS: BUN/Creatinine Ratio 15.9 (10.0-20.0); Blood Urea Nitrogen 11 mg/dL (9-23); Glucose 102 mg/dL (74-106)
[2023-10-19 08:01] LABS: Albumin 3.2 g/dL (3.2-4.8)
[2023-10-19 08:02] LABS: Aspartate Aminotransferase 33 U/L (13-40); Bilirubin, Total 0.5 mg/dL (0.2-1.0); Total Protein 5.7 g/dL (5.7-8.2)
[2023-10-19] MEDS: LISINOPRIL 10 MG TAB PO SCH (08:35)
[2023-10-19] MEDS: levETIRAcetam 500 MG TAB PO SCH ×2 (08:35→21:03)
[2023-10-19 09:00] VITALS: BP 109/73; PULSE 74; RESP 19; TEMP 98.8; O2SAT 100
[2023-10-19] MEDS ORDERED: HYDROcodone-ACET 7.5/325MG TAB PO PRN (11:30)
[2023-10-19 13:00] VITALS: BP_SYST 118; BP_SYST 149; BP_DIAS 71; BP_DIAS 76; PULSE 82; PULSE 88; RESP 14; RESP 18; TEMP 96.6; TEMP 98.2; O2SAT 93; O2SAT 95
[2023-10-19 17:00] VITALS: BP 108/68; PULSE 87; RESP 19; TEMP 98.3; O2SAT 95
[2023-10-19] MEDS: HYDROcodone-ACET 7.5/325MG TAB PO PRN ×2 (18:16→20:55)
[2023-10-19] MEDS ORDERED: TEMAZEPAM 15 MG CAP PO ONE (21:00)
[2023-10-19] MEDS: DOCUSATE SOD 100 MG CAP PO SCH (21:04)
[2023-10-19] MEDS: Ensure Enlive Vanilla 8oz Bottle PO SCH (21:05)
[2023-10-19 22:00] VITALS: BP 122/85; PULSE 87; RESP 19; TEMP 98.4; O2SAT 97
[2023-10-20 05:00] VITALS: BP 121/78; PULSE 73; RESP 19; TEMP 98.1; O2SAT 98
[2023-10-20] MEDS: Ensure Enlive Vanilla 8oz Bottle PO SCH ×3 (05:04→21:29)
[2023-10-20] MEDS: HYDROmorphone HCL 2 MG/ML VL/or syr IV PRN ×4 (05:24→20:26)
[2023-10-20 08:00] VITALS: PULSE 74; RESP 18
[2023-10-20 08:30] VITALS: BP 102/69; PULSE 74; RESP 18; TEMP 98.2; O2SAT 98
[2023-10-20] MEDS: LISINOPRIL 10 MG TAB PO SCH (09:41)
[2023-10-20] MEDS: DOCUSATE SOD 100 MG CAP PO SCH ×2 (09:41→21:30)
[2023-10-20] MEDS: levETIRAcetam 500 MG TAB PO SCH ×2 (09:41→21:28)
[2023-10-20] MEDS: HYDROcodone-ACET 7.5/325MG TAB PO PRN (12:35)
[2023-10-20 13:30] VITALS: BP 110/70; PULSE 83; RESP 20; TEMP 97.9; O2SAT 100
[2023-10-20] MEDS ORDERED: LORazepam 2MG/ML-1ML VIAL IV ONE ×2 (15:15→21:30)
[2023-10-20 17:08] VITALS: BP 106/72; PULSE 62; RESP 20; TEMP 97.9; O2SAT 98
[2023-10-20 22:00] VITALS: BP 116/76; PULSE 79; RESP 18; TEMP 98.3; O2SAT 94
[2023-10-20] MEDS: LORazepam 2MG/ML-1ML VIAL IV SCH ×2 (22:00→23:46)
[2023-10-20] MEDS ORDERED: TEMAZEPAM 15 MG CAP PO PRN (23:15)
[2023-10-21 05:00] VITALS: BP 116/79; PULSE 77; RESP 17; TEMP 98.2; O2SAT 98
[2023-10-21] MEDS: HYDROmorphone HCL 2 MG/ML VL/or syr IV PRN ×2 (05:25→10:28)
[2023-10-21] MEDS: Ensure Enlive Vanilla 8oz Bottle PO SCH (06:00)
[2023-10-21] MEDS: LORazepam 2MG/ML-1ML VIAL IV SCH (06:00)
[2023-10-21 07:14] LABS: Basophils # (auto) 0.1 10 ^3/uL (0-0.2); Basophils % (auto) 1.3 % (0.0-2.0); Eosinophils # (auto) 0.5 10 ^3/uL (0-0.8); Eosinophils % (auto) 8.2 % (0.0-7.0); Hematocrit 29.7 % (41.0-53.0); Hemoglobin 9.6 g/dL (13.5-17.5); Lymphocytes # (auto) 0.8 10 ^3/uL (0.4-5.4); Lymphocytes % (auto) 13.6 % (10.0-50.0); Mean Corpuscular Hemoglobin 27.2 pg (28.0-32.0); Mean Corpuscular Hgb Conc. 32.3 g/dL (32.0-36.0); Mean Corpuscular Volume 84.1 fL (80.0-100.0); Monocytes # (auto) 0.7 10 ^3/uL (0-1.3); Monocytes % (auto) 11.6 % (0.0-12.0); Neutrophils # (auto) 3.7 10 ^3/uL (1.6-8.6); Neutrophils % (auto) 65.3 % (37.0-80.0); Nucleated Red Blood Cells % 0.1 %; Red Blood Cells 3.53 10^6/uL (4.5-5.90); Red Cell Distribution Width 15.1 % (11.8-14.3); White Blood Cell 5.7 10^3/uL (4.4-10.8)
[2023-10-21 07:16] LABS: Anion Gap 3 (5-15); Carbon Dioxide 30 mmol/L (20-30); Chloride 102 mmol/L (98-107); Potassium 4.1 mmol/L (3.5-5.1); Sodium 135 mmol/L (136-145)
[2023-10-21 07:17] LABS: Calcium 8.7 mg/dL (8.7-10.4)
[2023-10-21 07:22] LABS: BUN/Creatinine Ratio 16.4 (10.0-20.0); Blood Urea Nitrogen 10 mg/dL (9-23); Glucose 92 mg/dL (74-106)
[2023-10-21 08:00] VITALS: PULSE 88; RESP 18; O2SAT 96
[2023-10-21] MEDS: HYDROcodone-ACET 7.5/325MG TAB PO PRN (08:20)
[2023-10-21 09:00] VITALS: BP 116/79; PULSE 75; RESP 17; TEMP 98.2; O2SAT 99
[2023-10-21] MEDS: levETIRAcetam 500 MG TAB PO SCH (10:26)
[2023-10-21] MEDS: DOCUSATE SOD 100 MG CAP PO SCH (10:26)
[2023-10-21] MEDS: LISINOPRIL 10 MG TAB PO SCH (10:27)
[2023-10-21 12:09] VITALS: BP 116/79
[2023-10-21 13:00] VITALS: BP 115/72; PULSE 85; RESP 18; TEMP 98.3; O2SAT 99
== END 2023-10-21 16:58 | disposition home or self-care (01) | DRG 651 ==
LOC: ER 11:45 → OVERFLOW 16:14 → WEST WING 10-08 15:08 → TELE-WESTW 10-08 19:25 → WEST WING 10-14 00:31
PROVIDERS: ADMIT Internal Medicine; ATTEND Student in an Organized Health Care Education/Training Program
PROC: 0W9G0ZZ Drainage of Peritoneal Cavity, Open Approach (ICD-10-PCS; principal; 2023-10-16 09:43)
DX: S36.029A Unspecified contusion of spleen, initial encounter (principal); I21.A1 Myocardial infarction type 2; S09.90XA Unspecified injury of head, initial encounter; I69.354 Hemiplegia and hemiparesis following cerebral infarction affecting left non-dominant side; D64.9 Anemia, unspecified; E78.5 Hyperlipidemia, unspecified; I10 Essential (primary) hypertension; R73.9 Hyperglycemia, unspecified; G40.909 Epilepsy, unspecified, not intractable, without status epilepticus; F17.200 Nicotine dependence, unspecified, uncomplicated; J44.9 Chronic obstructive pulmonary disease, unspecified; F15.10 Other stimulant abuse, uncomplicated; Z79.899 Other long term (current) drug therapy; Z80.0 Family history of malignant neoplasm of digestive organs; Z82.3 Family history of stroke; Z82.49 Family history of ischemic heart disease and other diseases of the circulatory system; Z83.3 Family history of diabetes mellitus; Z87.828 Personal history of other (healed) physical injury and trauma; W18.39XA Other fall on same level, initial encounter; Y93.89 Activity, other specified; Y92.89 Other specified places as the place of occurrence of the external cause; Y99.8 Other external cause status
CPT/HCPCS: 36415; 70551; 71045; 71275; 74177; 76705; 80048; 80053; 80061; 80307; 81001; 82607; 82728; 83036; 83540; 83550; 83735; 83880; 84484; 85025; 85379; 85610; 85730; 86850; 86900; 86901; 87081; 93005; 93306; 95819; 96361; 96372; 96374; G0378; J1100; J1885; J2001; J2250; J2405; J2704; J3490; J7042